=== PATIENT | male | born 1955 | race Caucasian/White ===

== ENCOUNTER 2018-10-03 07:31 | Day surgery (SDC) | payer OTHER ==
[2018-10-03] MEDS ORDERED: LIDOCAINE 4% SOLUTION 50 ML BTL (09:45)
[2018-10-03] MEDS ORDERED: MIDAZOLAM 1 MG/ML 2 ML INJ ×2 (10:36)
[2018-10-03] MEDS ORDERED: FENTAnyl 50 MCG/ML VIAL (10:36)
== END 2018-10-03 11:57 | disposition home or self-care (01) ==
LOC: GIL 07:31
DX: K64.8 Other hemorrhoids (principal); K64.4 Residual hemorrhoidal skin tags; K57.30 Diverticulosis of large intestine without perforation or abscess without bleeding; Z86.010 Personal history of colon polyps; K29.30 Chronic superficial gastritis without bleeding
CPT/HCPCS: 43239; 88305; 88312